=== PATIENT | female | born 1985 | race Two or more races ===

== ENCOUNTER 2018-03-29 08:37 | Emergency (ER) | payer OTHER ==
[~2018-03-29] VITALS: Ht 167.6 cm; Wt 69.2 kg
== END 2018-03-29 10:04 | disposition home or self-care (01) ==
LOC: FSED 09:13
DX: O26.90 Pregnancy related conditions, unspecified, unspecified trimester (principal); S30.1XXA Contusion of abdominal wall, initial encounter; M54.5 Low back pain; W18.39XA Other fall on same level, initial encounter; Y92.008 Other place in unspecified non-institutional (private) residence as the place of occurrence of the external cause
CPT/HCPCS: 80307; 81003; 81025; 99283

== ENCOUNTER 2018-10-25 07:24 | Emergency (ER) | payer OTHER ==
[~2018-10-25] VITALS: Ht 167.6 cm; Wt 61.2 kg
--- OUTSIDE RECORDS SUMMARY | 2018-10-25 07:26 | XMS REPORT | Continuity of Care Document ---
Author Author [facility] Interface Address Unknown Phone Unavailable Problems Problem Status Onset Date Classification Date Reported Comments Source Medications Medication Details Route Status Patient Instructions Ordering Provider Order Date Source Allergies, Adverse Reactions, Alerts Substance Category Reaction Severity Reaction type Status Date Reported Comments Source Immunizations Immunization Date Given Site Status Last Updated Comments Source Results Order Name Results Value Reference Range Date Interpretation Comments Source Vital Signs Vital Sign Value Date Comments Source Encounters Location Location Details Encounter Type Encounter Number Reason For Visit Attending Provider ADM Date DC Date Status Source Departed Emergency Room [id number] WILDA SUAREZ MD 03/29/2018 03/29/2018 [facility] Departed Emergency Room [id number] DUANE SANTIAGO MD 10/15/2018 10/15/2018 [facility] Procedures Procedure Code Date Perfomer Comments Source
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
--- NOTE | 2018-10-25 07:57 | NUR ---
2ND RN ATTEMPTED TO START IV AND DRAW LABS AND PT REFUSED RN TO CONTINUE ANY CARE.
[2018-10-25] MEDS ORDERED: LORAZEPAM INJ 2 MG/ML VIAL IM ONE (08:15)
[2018-10-25] MEDS ORDERED: HALOPERIDOL LACTATE 5 MG/ML VIAL IM ONE (08:15)
--- NOTE | 2018-10-25 08:46 | NUR ---
REPORT TO EMS, G NURSE.
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
--- NOTE | 2018-10-25 09:00 | NUR ---
PATIENT CHANGED INTO PAPER GOWN
--- NOTE | 2018-10-25 09:07 | NUR ---
MAT MEMBER HERE TO ASSESS PATIENT. PATIENT IS LETHARGIC AND STILL DIFICULT TO ARROUSE.
--- NOTE | 2018-10-25 09:25 | NUR ---
1:1 SITTER IN ROOM WITH PATIENT. PATIENT VOMITTED SMALL AMMOUNT OF YELLOW FLUID. PATIENT CLEANED AND NEW DANNY PLACED ON BED.
--- NOTE | 2018-10-25 09:50 | NUR ---
patient in room in bed, 1: sitter at bedside. patient had second episode of emisis, cleaned patient and placed onto clean skye. no s/s of acute distress. resp even and nonlabored. no c/o pain or discomfort.
--- NOTE | 2018-10-25 10:30 | NUR ---
informed er md of patient n/v. oending orders. patient in room in bed. no s/s ofa cute distress. resp even and non labored. bed down call light in reach. 1:1 sitter at bedside.
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
--- NOTE | 2018-10-25 10:52 | NUR ---
ALL PAPERWORK AT MAIN [facility] RECEIVED.
[2018-10-25] MEDS ORDERED: ONDANSETRON HCL 4 MG ORAL DISINTEGRATING TAB PO ONE (11:00)
--- NOTE | 2018-10-25 11:00 | NUR ---
patient in room in bed. patient is easier to arrouse but still has difficulty staying awake. 1:1 sitter at bedside
--- NOTE | 2018-10-25 11:28 | NUR ---
sitter assisted patient to wheelchair then to restroom. urine speciman cup given to patient.
[2018-10-25 11:31] LABS: BASOPHILS % 0.1 % (0.0-1.0); HEMATOCRIT 37.9 % (34.2-44.1); HEMOGLOBIN 12.3 g/dL (12.0-16.0); LYMPHOCYTES # (AUTO) 1.1 (1.0-3.2); LYMPHOCYTES % 11.3 % (18.0-39.1); MEAN CORPUSCULAR HEMOGLOBIN 27.5 pg (28-32); MEAN CORPUSCULAR HGB CONC 32.5 g/dL (31-35); MEAN CORPUSCULAR VOLUME 84.6 fL (81-99); MONOCYTES # (AUTO) 0.2 (0.2-0.8); MONOCYTES % 2.1 % (4.4-11.3); NEUTROPHILS # (AUTO) 8.6 (2.1-6.9); NEUTROPHILS % 86.1 % (38.7-80.0); PLATELET COUNT 458 x10e3/uL (140-360); RED BLOOD COUNT 4.48 x10e6/uL (3.6-5.1); RED CELL DISTRIBUTION WIDTH 13.2 % (11.7-14.4)
[2018-10-25 11:42] LABS: ALANINE AMINOTRANSFERASE 12 IU/L (0-55); ALBUMIN/GLOBULIN RATIO 1.1 (0.8-2.0); ALKALINE PHOSPHATASE 92 IU/L (40-150); ANION GAP 13.5 mmol/L (8-16); BLOOD UREA NITROGEN 5 mg/dL (7-26); BUN/CREATININE RATIO 7 (6-25); CALCIUM 9.2 mg/dL (8.4-10.2); CARBON DIOXIDE 24 mmol/L (22-29); CHLORIDE 103 mmol/L (98-107); CREATININE, SERUM 0.71 mg/dL (0.57-1.11); EST GLOMERULAR FILTRATION RATE > 60 ML/MIN (60-); GLUCOSE 121 mg/dL (74-118); POTASSIUM 3.5 mmol/L (3.5-5.1); SODIUM 137 mmol/L (136-145)
--- NOTE | 2018-10-25 11:54 | NUR ---
patient in room in bed. patient is now awake and alert and able to answer questions. no s/s of acute distress. resp even and nonlabored. reports having pain in neck, er md made aware. 1:1 sitter at bedside. patient reports no idea or intention or plan to harm self or anyone else. patient reports she feels safe at home and that she would follow up with outpatient care.
[2018-10-25 11:56] LABS: ACETAMINOPHEN < 3 ug/mL (10-30); SALICYLATE < 5.0 mg/dL (0-30)
[2018-10-25 11:59] LABS: PHENCYCLIDINE SCREEN,URINE NEGATIVE (NEGATIVE)
[2018-10-25 12:00] LABS: AMPHETAMINES SCREEN,URINE POSITIVE (NEGATIVE)
[2018-10-25] MEDS ORDERED: IBUPROFEN 600 MG TAB PO ONE (12:00)
[2018-10-25 12:01] LABS: THYROID STIMULATING HORMONE 0.172 uIU/mL (0.350-4.940)
[2018-10-25 12:01] LABS: BENZODIAZEPINES SCREEN,URINE POSITIVE (NEGATIVE)
[2018-10-25 12:10] LABS: CLARITY,URINE HAZY (CLEAR); COLOR,URINE YELLOW (YELLOW); KETONES,URINE NEGATIVE (NEGATIVE); LEUKOCYTE ESTERASE ,URINE NEGATIVE (NEGATIVE); NITRITE,URINE NEGATIVE (NEGATIVE); PROTEIN,URINE DIPSTICK NEGATIVE (NEGATIVE)
[2018-10-25 12:11] LABS: BILIRUBIN,URINE NEGATIVE (NEGATIVE); URINE UROBILINOGEN 0.2 mg/dL (0.2 - 1)
[2018-10-25 12:13] LABS: BACTERIA,URINE MANY /HPF; EPITHELIAL CELLS,URINE FEW /LPF; RBC,URINE 0-5 /HPF (0-5)
--- NOTE | 2018-10-25 12:40 | NUR ---
MAT member here to revisit patient.
--- NOTE | 2018-10-25 14:37 | NUR ---
called numbers in chart for (patient stated they now have a new number and she is not sure what it is) and for her father, left voicemail.
--- NOTE | 2018-10-25 14:46 | NUR ---
called father's phone number and reached pt's father. asked him to notify patient's spouse to come and pickler helper patient.
--- NOTE | 2018-10-25 15:18 | NUR ---
patient's in ED with clothes for patient. patient departed ER with all personal belongings.
== END 2018-10-25 15:37 | disposition home or self-care (01) ==
LOC: FSED 07:24 → ER 15:37
DX: F33.3 Major depressive disorder, recurrent, severe with psychotic symptoms (principal); F10.129 Alcohol abuse with intoxication, unspecified
CPT/HCPCS: 36415; 80053; 80307; 80320; 80329 ×2; 81001; 84443; 85025; 99284; J1630; J2060; Q0162